=== PATIENT | female | born 1990 | race Two or more races ===

== ENCOUNTER 2018-08-24 15:05 | Outpatient (CLI) | payer OTHER | END 2018-08-24 15:12 | disposition home or self-care (01) | LOC: LAB 15:05 | DX: J11.1 Influenza due to unidentified influenza virus with other respiratory manifestations (principal) ==

== ENCOUNTER 2019-05-20 09:14 | Outpatient (CLI) | payer OTHER | END 2019-05-20 15:00 | disposition home or self-care (01) | LOC: LAB 09:14 | DX: J11.1 Influenza due to unidentified influenza virus with other respiratory manifestations (principal) ==